=== PATIENT | female | born 1985 | race Caucasian/White ===

== ENCOUNTER 2021-10-04 07:33 | Outpatient (CLI) | payer BC | END 2021-10-04 07:34 | disposition home or self-care (01) | PROVIDERS: ATTEND Family Medicine | DX: R00.2 Palpitations (principal) | CPT/HCPCS: 93225; 93226 ==

== ENCOUNTER 2022-03-20 15:49 | Outpatient (CLI) | payer BC | END 2022-03-20 15:50 | disposition home or self-care (01) | LOC: ULT 15:49 | PROVIDERS: ATTEND Obstetrics & Gynecology | DX: R10.2 Pelvic and perineal pain (principal) | CPT/HCPCS: 76856; 93976 ==